=== PATIENT | male | born 1980 | race Caucasian/White ===

== ENCOUNTER → 2017-03-12 | Outpatient (CLI) | payer OTHER ==
[~2017-03-12] VITALS: Ht 175.3 cm; Wt 116.2 kg
[~2017-03-12] MED LIST: ALEV220T14 PO; ALPR0.5T3 PO; CARV6.252 PO; CHLORHEXIDINE GLUCONATE 2 % 1 PACK (2 CLOTHS) TOPICAL PRN; CHOL1CAP2 PO; FOLI1TAB6 PO; HYDR-3580 PO; IBUP200C PO; INSULIN HUMAN REGULAR 1,000 UNITS/10 ML VIAL SQ PRN; LACTATED RINGER'S 1000 ML IV PRN; LISI-519 PO; METOPROLOL TARTRATE 25 MG TAB PO PRN; MIDAZOLAM HCL 2 MG/2 ML VIAL IV ONE; PANT40TA3 PO; PHENYLEPH/NS 1000 MCG/10 ML SYR IV ONE; POVIDONE IODINE 5% (ANTISEPSIS KIT) 4 APPLICATIONS EACH NARE PRN; PROPOFOL 200 MG/20 ML AMP IV ONE; ROSU1TAB6 PO; SODIUM CHLORID 0.9% 500 ML IV PRN; UNIS25TA3 PO; ePHEDrine/NS 25 MG/5 ML SYR IV ONE
--- NOTE | 2017-03-12 10:55 | PD.PROCEDR ---
GI Procedure PROCEDURE PERFORMED EGD with dilation and biopsy INDICATION FOR PROCEDURE Dysphagia with known history of esophageal stricture PROCEDURE: The procedure, risks and benefits were discussed with Mr. Hunter and informed consent was obtained. Anesthesia sedated him with Diprivan. He was placed in the left lateral decubitus position. EGD: The Pentax videoscope was introduced through the oropharynx and advanced to the second portion of the duodenum under direct visualization. Retroflexion was performed in the stomach. FINDINGS: The esophagus there was a proximal bulging in the esophagus this was small but pulsating of unclear significance there was quite a bit of erosions and ulcerations noted in the mid to distal esophagus with significant esophageal stricturing in the mid to distal esophagus I was unable to pass the scope and therefore the esophagus dilated using a savory dilator over guidewire we used the 12 mm dilator postdilatation view revealed a moderate rent The stomach there was moderate sized hiatal hernia there was diffuse erythema and erosions throughout the gastric mucosa including the gastric body and antrum biopsies were taken for further evaluation The duodenum this appeared to be unremarkable and within normal limits ESTIMATED BLOOD LOSS: None SPECIMENS REMOVED: Gastric biopsies COMPLICATIONS: None IMPRESSION: Pulsating bulging in the proximal esophagus Ulcerated esophagitis Esophageal stricture Hiatal hernia Erosive gastritis PLAN: Await biopsies Discontinue any and all NSAIDs Protonix 40 mg twice a day half hour before breakfast and half hour before dinner I am unable to pursue endoscopic ultrasound at this point due to the condition of the esophagus We will order a CT of the chest with contrast to further evaluate the pulsating bulging in the esophagus We will also proceed with CT of the abdomen and pelvis to further evaluate pancreatic cyst using pancreatic protocol Will need EGD with dilation in 2 weeks Follow-up in clinic in 4 weeks Pending the results of the above we will consider repeat endoscopic ultrasound at some point in the near future Stewart Lopez MD Mar 12, 2017 10:55
[2017-03-12 11:16] VITALS: BP 106/63; PULSE 98; RESP 18; O2SAT 95
--- NOTE | 2017-03-12 13:59 | EKG ---
Date Performed: 03/12/2017 Time Performed: 09:31:19 PTAGE: 37 years EKG: SINUS TACHYCARDIA WITH OCCASIONAL SUPRAVENTRICULAR PREMATURE COMPLEXES MARKED LEFT AXIS DEV IATION MODERATE INTRAVENTRICULAR CONDUCTION DELAY ABNORMAL ECG NO PREVIOUS TRACING DOCTOR: Howard Hernandez Interpretating Date/Time 03/12/2017 13:57:26
== END ==
LOC: HSDC 08:27
PROVIDERS: ATTEND Internal Medicine Gastroenterology
DX: K22.2 Esophageal obstruction (principal); K22.10 Ulcer of esophagus without bleeding; R13.10 Dysphagia, unspecified; K44.9 Diaphragmatic hernia without obstruction or gangrene; K29.60 Other gastritis without bleeding; R94.31 Abnormal electrocardiogram [ECG] [EKG]
CPT/HCPCS: 00740; 43239; 43248; 88305; 88312; 93005; C1769; J2250; J2370; J3010

== ENCOUNTER → 2017-07-24 | Day surgery (SDC) | payer OTHER ==
[~2017-07-24] MED LIST changes: -ALEV220T14 PO; -CHLORHEXIDINE GLUCONATE 2 % 1 PACK (2 CLOTHS) TOPICAL PRN; -IBUP200C PO; -INSULIN HUMAN REGULAR 1,000 UNITS/10 ML VIAL SQ PRN; -LACTATED RINGER'S 1000 ML IV PRN; -METOPROLOL TARTRATE 25 MG TAB PO PRN; -MIDAZOLAM HCL 2 MG/2 ML VIAL IV ONE; -PHENYLEPH/NS 1000 MCG/10 ML SYR IV ONE; -POVIDONE IODINE 5% (ANTISEPSIS KIT) 4 APPLICATIONS EACH NARE PRN; -PROPOFOL 200 MG/20 ML AMP IV ONE; +PROPOFOL 500 MG/50 ML BTL IV ONE; -SODIUM CHLORID 0.9% 500 ML IV PRN; -ePHEDrine/NS 25 MG/5 ML SYR IV ONE
== END | disposition home or self-care (01) ==
LOC: ESDC 10:05
PROVIDERS: ATTEND Internal Medicine Gastroenterology
DX: R13.10 Dysphagia, unspecified (principal); R12 Heartburn; K22.2 Esophageal obstruction; K31.9 Disease of stomach and duodenum, unspecified
CPT/HCPCS: 00731; 43239; 43248; 88305; J3010

== ENCOUNTER → 2017-08-21 | Outpatient (CLI) | payer OTHER ==
[~2017-08-21] VITALS: Ht 175.3 cm; Wt 113.4 kg
[~2017-08-21] MED LIST changes: +CHLORHEXIDINE GLUCONATE 2 % 1 PACK (2 CLOTHS) TOPICAL PRN; +CYCL10TA PO; +GABA600T PO; -HYDR-3580 PO; +INSULIN HUMAN REGULAR 1,000 UNITS/10 ML VIAL SQ PRN; +LACTATED RINGER'S 1000 ML IV PRN; +LEXA10TA PO; +LIDOCAINE HCL 1% PF 5 ML SYRINGE OTHER ONE; -LISI-519 PO; +LISI10TA3 PO; +METOPROLOL TARTRATE 25 MG TAB PO PRN; +POVIDONE IODINE 5% (ANTISEPSIS KIT) 4 APPLICATIONS EACH NARE PRN; +PROPOFOL 200 MG/20 ML AMP IV ONE; +PROPOFOL 200 MG/20 ML AMP ONE; -PROPOFOL 500 MG/50 ML BTL IV ONE; +PROPOFOL 500 MG/50 ML INJ 50 ML ONE; +ROBA750T PO; +SODIUM CHLORID 0.9% 500 ML IV PRN; +ZANT150T2 PO
[2017-08-21 16:25] VITALS: BP 116/54; PULSE 98; RESP 20; TEMP 98.3; O2SAT 95
--- NOTE | 2017-08-21 17:56 | PD.PROCEDR ---
GI Procedure PROCEDURE PERFORMED EGD with biopsy followed by an endoscopic ultrasound INDICATION FOR PROCEDURE History of esophagitis, pancreatitis PROCEDURE: The procedure, risks and benefits were discussed with Patient/POA and informed consent was obtained. Anesthesia sedated Patient with Diprivan. Patient was placed in the left lateral decubitus position. EGD: The Pentax videoscope was introduced through the oropharynx and advanced to the second portion of the duodenum under direct visualization. Retroflexion was performed in the stomach. FINDINGS: The esophagus there was long segment June's extending from 25 cm to 35 cm multiple biopsies were taken every 2 cm The stomach there was a large hiatal hernia otherwise gastric mucosa appeared to be unremarkable and within normal limits The duodenum this was normal EUS: The Pentax videoscope was introduced through the oropharynx and advanced to the second portion of the duodenum . FINDINGS: The pancreatic parenchyma on endoscopic ultrasound appeared to be mostly homogeneous mildly hypoechoic with mild irregularity of the lobular type possibly representing chronic or resolving pancreatitis with a normal pancreatic duct No pseudocyst was noted or identified Gallbladder was normal Common bile duct was normal No lymphadenopathy ESTIMATED BLOOD LOSS: None SPECIMENS REMOVED: Esophageal biopsies COMPLICATIONS: None IMPRESSION: Long segment June's Large hiatal hernia Probable chronic pancreatitis or resolving pancreatitis PLAN: Await biopsies Follow-up in clinic in 2-4 weeks EGD in 1 year Stewart Lopez MD Aug 21, 2017 17:56
== END ==
LOC: HSDC 12:40
PROVIDERS: ATTEND Internal Medicine Gastroenterology
DX: K85.90 Acute pancreatitis without necrosis or infection, unspecified (principal); K22.70 Barrett's esophagus without dysplasia; K44.9 Diaphragmatic hernia without obstruction or gangrene; K20.9 Esophagitis, unspecified
CPT/HCPCS: 00731; 43239; 43259; 88305; J7120